=== PATIENT | female | born 1985 | race Caucasian/White ===

== ENCOUNTER 2022-10-13 05:33 | Day surgery (SDC) | payer OTHER ==
[2022-10-09 14:56] VITALS: BMI 36.5
[2022-10-13] MEDS ORDERED: Lidocaine 1% MPF 2 ML VIAL ONE (06:20)
[2022-10-13] MEDS ORDERED: CEFAZOLIN 2 GM VIAL ONE (06:20)
[2022-10-13] MEDS ORDERED: Thrombin 5000 UNITS/5 ML VIAL ONE (06:33)
[2022-10-13] MEDS ORDERED: Vancomycin 1 GM VIAL ONE (06:33)
[2022-10-13] MEDS ORDERED: Sodium Chloride 0.9% 100 ML ONE (06:39)
[2022-10-13] MEDS ORDERED: SUGAMMADEX SODIUM 200 MG/2 ML VIAL ONE (07:02)
[2022-10-13] MEDS ORDERED: fentaNYL 50 mcg/mL 1 mL Vial ONE ×3 (07:02→09:56)
[2022-10-13] MEDS ORDERED: Famotidine/PF 20 mg/2ml Vial ONE (07:02)
[2022-10-13] MEDS ORDERED: PROPOFOL 200 MG/20 ML VIAL ONE (07:37)
[2022-10-13] MEDS ORDERED: Metoclopramide HCl 10 MG/2 ML VIAL ONE (07:37)
[2022-10-13] MEDS ORDERED: Lidocaine 1% PF 5 ML VIAL ONE (07:37)
[2022-10-13] MEDS ORDERED: Ketorolac Tromethamine 30 MG/ML VIAL ONE (07:37)
[2022-10-13] MEDS ORDERED: Dexamethasone 20 MG/5 ML VIAL ONE (07:37)
[2022-10-13] MEDS ORDERED: Rocuronium Bromide 10 MG/ML (10ML VIAL) ONE (07:37)
[2022-10-13] MEDS ORDERED: Ondansetron PF 4 MG/2 ML Vial ONE ×2 (07:37→08:39)
[2022-10-13 07:47] LABS: #Eosinphils 0.2 thou/uL (0.0-0.7); #Monocytes 0.5 thou/uL (0.11-0.59); #Neutrophils 4.3 thou/uL (1.40-6.50); %Basophils 0.3 % (0.0-1.0); %Eosinophils 3.2 % (0.0-10.0); %Lymphocytes 28.3 % (21.0-51.0); %Neutrophils 60.9 % (42.0-75.0); Hemoglobin 13.2 g/dL (12.0-16.0); Mean Corpuscular Volume 87.5 fl (78.0-98.0); Mean Platelet Volume 9.9 fL (7.4-10.4); Platelet Count 291 10x3/uL (130-400); RBC Distribution Width 13.4 % (11.5-14.5); Red Blood Cell (RBC) Count 4.71 mill/uL (4.20-5.40); White Blood Cell (WBC) Count 7.1 10x3/uL (4.8-10.8)
[2022-10-13 08:04] LABS: BHCG - Serum Negative (NEGATIVE); Pregs Control Background? CLEAR/WHITE (CLR/WHITE); Pregs Control Bar Appear? YES (CONTROL BAR)
[2022-10-13 08:13] LABS: Anion Gap 6 mmol/L (10-20); BUN (Urea Nitrogen) 13 mg/dL (7.0-18.7); Calc. Creatinine Clearance 162 mL/min (70-130); Calcium 8.9 mg/dL (7.8-10.44); Carbon Dioxide 21 mmol/L (22-29); Chloride 111 mmol/L (98-107); Estimated GFR 95; Glucose 107 mg/dL (70-105); Sodium 134 mmol/L (136-145)
[2022-10-13] MEDS ORDERED: hydrALAZINE 20 MG/ML VIAL ONE (09:26)
[2022-10-13] MEDS ORDERED: Morphine 2 MG/ML VIAL ONE (10:15)
[2022-10-13] MEDS ORDERED: HYDROcodone/Acetaminophen 5/325 mg Tablet ONE (10:56)
== END 2022-10-13 11:35 | disposition home or self-care (01) ==
LOC: SDC 05:33
PROVIDERS: ATTEND Neurological Surgery
PROC: 0SG30AJ Fusion of Lumbosacral Joint with Interbody Fusion Device, Posterior Approach, Anterior Column, Open Approach (ICD-10-PCS; principal; 2022-10-13)
PROC: 01NB0ZZ Release Lumbar Nerve, Open Approach (ICD-10-PCS; principal; 2022-10-13)
DX: M51.86 Other intervertebral disc disorders, lumbar region (principal)
CPT/HCPCS: 36415; 80048; 84703; 85025; 93005; 93010; C1713; C1889; J0360; J1100; J1885; J2272; J2405; J2704; J2765; J3010; J3370; J3490; S0028